=== PATIENT | female | born 1945 | race Caucasian/White ===

== ENCOUNTER 2016-06-20 21:09 | Observation (INO) | payer MEDICARE ==
[~2016-06-20] VITALS: Ht 152.4 cm; Wt 69.4 kg
[2016-06-20 22:43] LABS: HEMOGLOBIN 12.6 gm/dl (12.3-15.3); RED BLOOD COUNT 4.36 M/UL (4.00-5.10)
[2016-06-21] MEDS ORDERED: SYNTHROID75 MCG PO (02:40)
[2016-06-21] MEDS ORDERED: ALLERGY RELIEF10 M3 PO (02:40)
[2016-06-21] MEDS ORDERED: MELOXICAM15 MG PO (02:41)
[2016-06-21] MEDS ORDERED: OXYBUTYNIN CHLOR5 MG PO (02:41)
[2016-06-21] MEDS ORDERED: CRESTOR10 MG PO (02:42)
[2016-06-21] MEDS ORDERED: ZANTAC150 MG PO (02:42)
[2016-06-21] MEDS ORDERED: NORVASC 5 MG TAB5 MG PO (02:42)
[2016-06-21] MEDS ORDERED: NEXIUM40 MG PO (02:42)
[2016-06-21] MEDS ORDERED: QUESTRAN LIGHT 44 GM PO (02:43)
[2016-06-22 06:27] LABS: HEMOGLOBIN 12.5 gm/dl (12.3-15.3); RED BLOOD COUNT 4.36 M/UL (4.00-5.10); WHITE BLOOD COUNT 6.7 K/UL (4.5-11.0)
[2016-06-22] MEDS ORDERED: BAYER CHEWABLE81 MG PO (14:33)
[2016-06-22] MEDS ORDERED: CARDIZEM CD180 MG PO (14:34)
[2016-06-22] MEDS ORDERED: HYDROCHLOROTHIA25 MG PO (14:35)
[2016-06-22] MEDS ORDERED: LISINOPRIL10 MG PO (14:39)
== END 2016-06-22 15:51 | disposition home or self-care (01) ==
LOC: ER1 21:09 → M/S 06-21 01:00 → ZEROF 06-21 01:00 → M/S 06-21 02:04
PROVIDERS: Emergency Medicine; Internal Medicine; ADMIT Internal Medicine
DX: R07.9 Chest pain, unspecified (principal); R00.2 Palpitations; E78.5 Hyperlipidemia, unspecified; E03.9 Hypothyroidism, unspecified; E11.9 Type 2 diabetes mellitus without complications; I11.0 Hypertensive heart disease with heart failure; I50.33 Acute on chronic diastolic (congestive) heart failure; K21.9 Gastro-esophageal reflux disease without esophagitis; Z79.82 Long term (current) use of aspirin; Z79.891 Long term (current) use of opiate analgesic; Z79.899 Other long term (current) drug therapy; Z86.73 Personal history of transient ischemic attack (TIA), and cerebral infarction without residual deficits; Z90.49 Acquired absence of other specified parts of digestive tract; Z90.710 Acquired absence of both cervix and uterus; Z88.2 Allergy status to sulfonamides; Z87.891 Personal history of nicotine dependence
CPT/HCPCS: ECHO; 36415; 71020; 80048; 80053; 80061; 81001; 82550; 82553; 83036; 83690; 83880; 84443; 84484; 85025; 85027; 85379; 85610; 85730; 87086; 93005; 93306; 99285; G0378